=== PATIENT | female | born 1990 | race Caucasian/White ===

== ENCOUNTER → 2017-06-03 | Outpatient (CLI) | payer OTHER ==
--- NOTE | 2017-06-03 11:46 | REP ---
Pelvic ultrasound including transabdominal, endovaginal and Doppler ultrasound assessment: The bladder is adequately distended. The uterus is anteverted and normal size measuring 7.0 x 2.8 x 4.1 cm. The endometrium is not thickened measuring up to 1.9 mm. The ovaries are normal size. Right ovary measures 2.31 and 3 x 2.6 cm. Left ovary measures 2.1 x 1.9 x 3.0 cm. There are no dominant ovarian masses or cysts. There is no free fluid in the pelvis. With Doppler assessment there is vascular flow in both ovaries. The left ovary: Visualized on transabdominal imaging. Because of its high location could not be identified on endovaginal imaging. Impression: Essentially negative pelvic ultrasound. Signed by Fabiano Aranda MD 06/03/2017 11:38 A
== END ==
LOC: M RAD 10:16
PROVIDERS: ATTEND Family Medicine
DX: R10.31 Right lower quadrant pain (principal)

== ENCOUNTER → 2018-06-07 | Outpatient (REF) | payer OTHER | LOC: M LAB REF 15:05 | DX: R19.7 Diarrhea, unspecified (principal) ==